=== PATIENT | male | born 1990 | race Caucasian/White ===

== ENCOUNTER 2018-09-02 01:40 | Emergency (ER) | payer SELFPAY ==
[~2018-09-02] VITALS: Ht 180.3 cm; Wt 68.0 kg
[2018-09-02] MEDS ORDERED: IBUPROFEN 600 MG TABLET PO ONE (03:00)
[2018-09-02] MEDS ORDERED: IBUPROFEN 600 MG TABLET ONE (03:05)
[2018-09-02] MEDS ORDERED: DIAZEPAM 5 MG TABLET ONE (03:08)
[2018-09-02] MEDS ORDERED: DIAZEPAM 2 MG TABLET PO ONE (03:15)
--- NOTE | 2018-09-02 03:20 | NUR ---
Patient discharged to home in stable conditon. Written and verbal after care instructions given. Patient verbalizes understanding of instructions. Pt ambulated out of ER with crutches. All belongings with pt. VSS. Pt has mother who will drive him home. NAD noted.
[2018-09-02 03:22] VITALS: BP 128/89
== END 2018-09-02 03:23 | disposition home or self-care (01) ==
LOC: ER 01:43
DX: S16.1XXA Strain of muscle, fascia and tendon at neck level, initial encounter (principal); S09.90XA Unspecified injury of head, initial encounter; S89.92XA Unspecified injury of left lower leg, initial encounter; F07.81 Postconcussional syndrome; V03.09XA Pedestrian with other conveyance injured in collision with car, pick-up truck or van in nontraffic accident, initial encounter; Y93.89 Activity, other specified; Y92.89 Other specified places as the place of occurrence of the external cause; Y99.8 Other external cause status
CPT/HCPCS: 70450; 72125; 73560; 73590; A4663